=== PATIENT | female | born 1990 | race American Indian/Alaskan Native ===

== ENCOUNTER 2019-11-04 16:53 | Emergency (ER) | payer SELFPAY ==
--- NOTE | 2019-11-04 17:54 | Event Note ---
ED Screening Note Date of service: 11/04/19 Time: 17:50 ED Screening Note: This is a 29 y.o. F. that presents to the ER with palpitations and vaginal bleeding. Patient reports a history of irregular heart rhythm. States when palpitations start she have chest pain with symptoms. States chest pain is resolved. Patient reports vaginal bleeding since 09/03/2019. She received depovera and bleeding every since. This initial assessment/diagnostic orders/clinical plan/treatment(s) is/are subj ect to change based on patients health status, clinical progression and re- assessment by fellow clinical providers in the ED. Further treatment and workup at subsequent clinical providers discretion. Patient/guardian urged not to elope from the ED as their condition may be serious if not clinically assessed and managed. Initial orders include: Labs EKG
[2019-11-04 18:27] LABS: Basophils % (Auto) 0.4 % (0.0-1.8); Eosinophils # (Auto) 0.1 K/mm3 (0.0-0.4); Eosinophils % (Auto) 1.4 % (0.0-4.3); Hematocrit 22.5 % (30.3-42.9); Hemoglobin 7.2 gm/dl (10.1-14.3); Lymphocytes # (Auto) 2.9 K/mm3 (1.2-5.4); Lymphocytes % (Auto) 27.4 % (13.4-35.0); Mean Corpuscular HGB Conc 32 % (30-34); Monocytes # (Auto) 0.8 K/mm3 (0.0-0.8); Monocytes % (Auto) 7.8 % (0.0-7.3); Platelet Count 380 K/mm3 (140-440); Red Blood Count 3.25 M/mm3 (3.65-5.03); Red Cell Distribution Width 19.1 % (13.2-15.2)
[2019-11-04 18:33] LABS: Mean Corpuscular Volume 69 fl (79-97)
--- NOTE | 2019-11-04 20:05 | Emergency Department Report ---
ED General Adult HPI - General Chief complaint: Vaginal Bleeding Stated complaint: chest painbleeding, irr heartbeat Time Seen by Provider: 11/04/19 17:50 Source: patient Mode of arrival: Ambulatory Limitations: No Limitations - History of Present Illness Initial comments: Abdomen obese Samoan female to emergency Department complaining abnormal menses cycle since August which she has experienced in the past and worried because she usually becomes anemic during this time. She reports having issues of what sounds like palpitations and occasional lightheadedness with position change. She reports no fever, chills, sweats no vaginal discharge no abdominal pain no flank pain no easy bruising no hemoptysis no hematemesis or hematochezia. -: Gradual Consistency: constant Improves with: none Worsens with: none Associated Symptoms: denies other symptoms, chest pain (was given occasional funny irritation to the chest with palpitations which last for matter of seconds. She reports not having any of these episodes in the last couple days however). denies: cough, diaphoresis, loss of appetite, malaise, nausea/vomiting, syncope, weakness Treatments Prior to Arrival: none - Related Data Previous Rx's Medication Instructions Recorded Last Taken Type medroxyPROGESTERone ACETATE 10 mg PO QDAY #28 tablet 08/23/16 Unknown Rx [Provera] Iron Fum,Ps/Folic/Bcomp,C No.9 1 each PO DAILY #30 capsule 11/04/19 Unknown Rx [Integra Plus Capsule] Allergies Allergy/AdvReac Type Severity Reaction Status Date / Time No Known Allergies Allergy Verified 10/02/15 12:55 ED Review of Systems ROS: Stated complaint: chest painbleeding, irr heartbeat Other details as noted in HPI Comment: All other systems reviewed and negative ED Past Medical Hx - Past Medical History Hx Congestive Heart Failure: No Hx Diabetes: No Hx Headaches / Migraines: No Hx Seizures: No Hx Asthma: Yes Hx COPD: No Hx Dementia: No Additional medical history: anemia - Surgical History Additional Surgical History: blood transfusion [id number] - Social History Smoking Status: Never Smoker Substance Use Type: None - Medications Home Medications: Home Medications Medication Instructions Recorded Confirmed Last Taken Type medroxyPROGESTERone ACETATE 10 mg PO QDAY #28 tablet 08/23/16 Unknown Rx [Provera] Iron Fum,Ps/Folic/Bcomp,C No.9 1 each PO DAILY #30 capsule 11/04/19 Unknown Rx [Integra Plus Capsule] ED Physical Exam - General Limitations: No Limitations General appearance: alert, in no apparent distress - Head Head exam: Present: atraumatic, normocephalic, normal inspection - Eye Eye exam: Present: normal appearance, PERRL, EOMI Pupils: Present: normal accommodation - ENT ENT exam: Present: normal exam, normal orophraynx, mucous membranes moist - Neck Neck exam: Present: normal inspection - Respiratory Respiratory exam: Present: normal lung sounds bilaterally. Absent: respiratory distress - Cardiovascular Cardiovascular Exam: Present: regular rate, normal rhythm. Absent: systolic murmur, diastolic murmur, rubs, gallop - GI/Abdominal GI/Abdominal exam: Present: soft, normal bowel sounds. Absent: distended, tenderness, rigid, hyperactive bowel sounds, hypoactive bowel sounds, organomegaly - Extremities Exam Extremities exam: Present: normal inspection - Back Exam Back exam: Present: normal inspection - Neurological Exam Neurological exam: Present: alert, oriented X3 - Psychiatric Psychiatric exam: Present: normal affect, normal mood - Skin Skin exam: Present: warm, dry, intact, normal color. Absent: rash ED Course Vital Signs 11/04/19 17:13 Temperature 98.9 F Pulse Rate 103 H Respiratory 16 Rate Blood Pressure 149/92 O2 Sat by Pulse 96 Oximetry ED Medical Decision Making - Lab Data Result diagrams: 11/04/19 18:18 - EKG Data When compared to previous EKG there are: no significant change Interpretation: no acute changes - Medical Decision Making 29-year-old morbidly obese -Samoan female with a known history of iron deficiency anemia presents much department menses in the sensation of associated anemia. Hemoglobin was found to be 7.2 patient's awake alert oriented 3 no distress heart rate 100 ambulatory with no change in her vital signs or respirations she said 96-99% on room air. 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 Yesterday she ran out of her arm. An request a refill. She is comfortable with the plan of care. Critical care attestation.: If time is entered above; I have spent that time in minutes in the direct care of this critically ill patient, excluding procedure time. ED Disposition Clinical Impression: Anemia, Abnormal menses Disposition: TO HOME OR SELFCARE Is pt being admited?: No Does the pt Need Aspirin: No Condition: Stable Instructions: Iron Rich Diet (ED), Iron Deficiency Anemia (ED), Anemia (ED) Prescriptions: Iron Fum,Ps/Folic/Bcomp,C No.9 [Integra Plus Capsule] 1 each PO DAILY #30 capsule Referrals: [facility] [Provider Group] - 3-5 Days JAZMIN CERON MD [Staff Physician] - 3-5 Days
[2019-11-04 20:19] VITALS: BP 146/94
== END 2019-11-04 21:44 | disposition home or self-care (01) ==
LOC: ED 16:53
DX: D64.9 Anemia, unspecified (principal); N94.89 Other specified conditions associated with female genital organs and menstrual cycle; J45.909 Unspecified asthma, uncomplicated
CPT/HCPCS: 36415; 84703; 85025; 93005; 93010; 99283

== ENCOUNTER 2020-01-08 02:54 | Observation (INO) | payer MEDICAID ==
[2020-01-08] MEDS ORDERED: SODIUM CHLORIDE 0.9% 1000 ML 1,000 ML IV ONE (03:31)
[2020-01-08 04:38] LABS: Basophils % (Auto) 0.4 % (0.0-1.8); Eosinophils # (Auto) 0.1 K/mm3 (0.0-0.4); Eosinophils % (Auto) 1.2 % (0.0-4.3); Lymphocytes # (Auto) 2.9 K/mm3 (1.2-5.4); Lymphocytes % (Auto) 23.1 % (13.4-35.0); Mean Corpuscular HGB Conc 27 % (30-34); Monocytes # (Auto) 0.7 K/mm3 (0.0-0.8); Monocytes % (Auto) 5.8 % (0.0-7.3); Platelet Count 494 K/mm3 (140-440); Red Blood Count 3.34 M/mm3 (3.65-5.03)
[2020-01-08 04:44] LABS: Hematocrit 18.9 % (30.3-42.9); Hemoglobin 5.1 gm/dl (10.1-14.3); Mean Corpuscular Volume 57 fl (79-97); Red Cell Distribution Width 23.1 % (13.2-15.2)
[2020-01-08] MEDS ORDERED: SODIUM CHLORIDE 0.9% 500 ML 500 ML IV ONE (04:54)
--- NOTE | 2020-01-08 04:56 | Emergency Department Report ---
ED Dizziness HPI - General Chief Complaint: Dizziness Stated Complaint: HEADACHE/DIZZINESS/FAST HEART BEAT Time Seen by Provider: 01/08/20 04:53 Source: patient Mode of arrival: Ambulatory Limitations: No Limitations - History of Present Illness Initial Comments: Patient is a 29-year-old female that presents emergency room with complaints of dizziness and fast heartbeat. Patient also complaining of a headache. Patient states her headache is better with rest and worse with exertion. Patient denies fever or chills. Patient denies shortness of breath. Patient has a long history of anemia. MD Complaint: dizziness -: Sudden Timing: sudden onset Description: lightheadedness History of Same: Yes History of Trauma: No Severity: severe Improves With: rest Worsens With: movement, exertion Associated Symptoms: denies: ataxia, chest pain, confusion, cough, diaphoresis, fever/chills, loss of appetite, malaise, rash, seizure, shortness of breath, syncope, weakness - Related Data Previous Rx's Medication Instructions Recorded Last Taken Type medroxyPROGESTERone ACETATE 10 mg PO QDAY #28 tablet 08/23/16 Unknown Rx [Provera] Iron Fum,Ps/Folic/Bcomp,C No.9 1 each PO DAILY #30 capsule 11/04/19 Unknown Rx [Integra Plus Capsule] Allergies Allergy/AdvReac Type Severity Reaction Status Date / Time No Known Allergies Allergy Verified 10/02/15 12:55 ED Review of Systems ROS: Stated complaint: HEADACHE/DIZZINESS/FAST HEART BEAT Other details as noted in HPI Constitutional: denies: chills, fever Eyes: denies: eye pain, eye discharge, vision change ENT: denies: ear pain, throat pain Respiratory: denies: cough, shortness of breath, wheezing Cardiovascular: palpitations. denies: chest pain Endocrine: no symptoms reported Gastrointestinal: denies: abdominal pain, nausea, diarrhea Genitourinary: denies: urgency, dysuria, discharge Musculoskeletal: denies: back pain, joint swelling, arthralgia Skin: denies: rash, lesions Neurological: headache. denies: weakness, paresthesias Psychiatric: denies: anxiety, depression Hematological/Lymphatic: denies: easy bleeding, easy bruising ED Past Medical Hx - Past Medical History Previous Medical History?: Yes Hx Congestive Heart Failure: No Hx Diabetes: No Hx Headaches / Migraines: No Hx Seizures: No Hx Asthma: Yes Hx COPD: No Hx Dementia: No Additional medical history: anemia - Surgical History Past Surgical History?: Yes Additional Surgical History: blood transfusion [id number] - Family History Family history: no significant - Social History Smoking Status: Never Smoker Substance Use Type: None - Medications Home Medications: Home Medications Medication Instructions Recorded Confirmed Last Taken Type medroxyPROGESTERone ACETATE 10 mg PO QDAY #28 tablet 08/23/16 Unknown Rx [Provera] Iron Fum,Ps/Folic/Bcomp,C No.9 1 each PO DAILY #30 capsule 11/04/19 Unknown Rx [Integra Plus Capsule] ED Physical Exam - General Limitations: No Limitations General appearance: alert, in no apparent distress - Head Head exam: Present: atraumatic, normocephalic - Eye Eye exam: Present: normal appearance - ENT ENT exam: Present: mucous membranes moist - Neck Neck exam: Present: normal inspection - Respiratory Respiratory exam: Present: normal lung sounds bilaterally. Absent: respiratory distress, wheezes, rales - Cardiovascular Cardiovascular Exam: Present: regular rate, normal rhythm. Absent: systolic murmur, diastolic murmur, rubs, gallop - GI/Abdominal GI/Abdominal exam: Present: soft, normal bowel sounds. Absent: distended, tenderness, guarding - Extremities Exam Extremities exam: Present: normal inspection - Back Exam Back exam: Present: normal inspection - Neurological Exam Neurological exam: Present: alert, oriented X3 - Psychiatric Psychiatric exam: Present: normal affect, normal mood - Skin Skin exam: Present: warm, dry, intact, normal color. Absent: rash ED Course Vital Signs 01/08/20 01/08/20 03:10 05:00 Temperature 99.4 F Pulse Rate 121 H 103 H Respiratory 18 21 Rate Blood Pressure 158/86 153/78 O2 Sat by Pulse 100 100 Oximetry - Reevaluation(s) Reevaluation #1: Initial evaluation done. Patient's tachycardic. Patient found to be anemic. Patient will be typed and screened for 2 units. 01/08/20 04:56 Reevaluation #2: I discussed all results with patient. I discussed plan of care with patient. Patient agrees with plan of care and admission. Patient to be admitted to the hospitalist service. 01/08/20 05:01 - Consultations Consultation #1: Hospitalist consulted for admission. Hospitalist to admit patient. Bridge orders placed. 01/08/20 05:01 ED Medical Decision Making - Lab Data Result diagrams: 01/08/20 03:35 01/08/20 03:35 - EKG Data -: EKG Interpreted by Me EKG shows normal: sinus rhythm, axis, intervals, QRS complexes, ST-T waves Rate: tachycardia - Medical Decision Making Patient is a 29-year-old female that presents emergency room with complaints of headache, dizziness and palpitations. Patient has a long history of anemia. Patient CBCs shows a severe anemia with an H&H at 5.1/18.9. Patient will be adm itted to the hospitalist service and patient will be typed and screened and received 2 units due to her tachycardia. - Differential Diagnosis Anemia, tachycardia, dizziness, palpitations Critical Care Time: Yes Critical care time in (mins) excluding proc time.: 35 Critical care attestation.: If time is entered above; I have spent that time in minutes in the direct care of this critically ill patient, excluding procedure time. Critical Care Time: 35 minutes ED Disposition Clinical Impression: Severe anemia, Palpitations, Dizziness, Tachycardia Anemia Qualifiers: Anemia type: unspecified type Qualified Code(s): D64.9 - Anemia, unspecified Disposition: DC-09 OP ADMIT IP TO THIS HOSP Is pt being admited?: Yes Does the pt Need Aspirin: No Condition: Critical Time of Disposition: 05:02
[2020-01-08 05:03] LABS: Alanine Aminotransferase 8 units/L (7-56); BUN/Creatinine Ratio 9; Blood Urea Nitrogen 6 mg/dL (7-17); Calcium 8.8 mg/dL (8.4-10.2); Hemolysis Index 1
--- NOTE | 2020-01-08 05:47 | History and Physical Report ---
History of Present Illness History of present illness: 29-year-old woman with a history of anemia, dysfunctional uterine bleed, transfusion in the past comes emergency room with complaints of shortness of breath, dizziness and palpitations. Patient states she has been having her menstrual cycle for the last 4 months, menstrual cycle got worse when she started Depo-Provera. Hemoglobin was found to be low, she will be admitted for anemia Review Of Systems: Constitutional: no weight loss, fever, chills Ears, eyes, nose, mouth and throat: no nasal congestion, no nasal discharge, no sinus pressure, blurry vision, diplopia Neck: No neck pain or rigidity. Cardiovascular: No palpitations, chest pain Respiratory: No shortness of breath, cough Gastrointestinal: No hematochezia Genitourinary : no dysuria, frequency Musculoskeletal: no muscle ache , joint pain Integumentary: no rash, no pruritis Neurological: no parathesias, focal weakness Endocrine: no cold or heat intolerance, no polyuria or polydipsia Hematologic/Lymphatic: no easy bruising, no easy bleeding, no gland swelling Allergic/Immunologic: no urticaria, no angioedema. PAST MEDICAL HISTORY: Anemia PAST SURGICAL HISTORY: SOCIAL HISTORY: Denies alcohol, tobacco, drugs FAMILY HISTORY: Hypertension Medications and Allergies Allergies Allergy/AdvReac Type Severity Reaction Status Date / Time No Known Allergies Allergy Verified 10/02/15 12:55 Exam - Physical Exam Narrative exam: Gen. appearance: Patient lying in bed, no apparent distress HEENT: Normocephalic, atraumatic, pupils equally round and reactive to light, extraocular movement intact, and no sclericterus,. No JVD or thyromegaly or nodule,neck supple, no carotid bruit ,mucous membranes moist, no exudate or erythema Heart: S1, S2, regular rate and rhythm Lungs: Clear bilaterally, breathing comfortable Abdomen: Positive bowel sounds, nontender, nondistended, no organomegaly Extremity: no edema, cyanosis, clubbing Skin: No rash, nodules, warm, dry Neuro: Cranial nerves II to XII intact, speech is fluent, moves extremities, sensory intact - Constitutional Vitals: Temp Pulse Resp BP Pulse Ox 99.4 F 103 H 21 153/78 100 01/08/20 03:10 01/08/20 05:00 01/08/20 05:00 01/08/20 05:00 01/08/20 05:00 Results - Labs CBC & Chem 7: 01/08/20 03:35 01/08/20 03:35 Labs: Abnormal lab results 01/08/20 01/08/20 Range/Units 03:35 03:35 WBC 12.6 H (4.5-11.0) K/mm3 RBC 3.34 L (3.65-5.03) M/mm3 Hgb 5.1 L* (10.1-14.3) gm/dl Hct 18.9 L* (30.3-42.9) % MCV 57 L (79-97) fl MCH 15 L (28-32) pg MCHC 27 L (30-34) % RDW 23.1 H (13.2-15.2) % Plt Count 494 H (140-440) K/mm3 Seg Neutrophils # 8.7 H (1.8-7.7) K/mm3 BUN 6 L (7-17) mg/dL Glucose 107 H (65-100) mg/dL Assessment and Plan Assessment 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
[2020-01-08] MEDS ORDERED: ONDANSETRON 4 MG/2 ML INJ IV PRN (06:31)
[2020-01-08] MEDS ORDERED: diphenhydrAMINE 50 MG/ML VIAL IV PRN (06:36)
[2020-01-08] MEDS: ACETAMINOPHEN 325 MG TAB PO PRN ×2 (09:48→21:02)
--- NOTE | 2020-01-08 10:01 | Progress Note ---
Assessment and Plan Assessment and plan: --Severe anemia; Hemoglobin 5.1, hematocrit 18.9 Type and cross, transfuse 2 units of PRBC stat Closely monitor H&H Hospitalist Physical - Constitutional Vitals: Temp Pulse Resp BP Pulse Ox 98.3 F 97 H 18 128/70 99 01/08/20 07:27 01/08/20 07:27 01/08/20 07:27 01/08/20 07:27 01/08/20 07:27 Results - Labs CBC & Chem 7: 01/08/20 03:35 01/08/20 03:35 Labs: Laboratory Last Values WBC 12.6 K/mm3 (4.5-11.0) H 01/08/20 03:35 RBC 3.34 M/mm3 (3.65-5.03) L 01/08/20 03:35 Hgb 5.1 gm/dl (10.1-14.3) L* 01/08/20 03:35 Hct 18.9 % (30.3-42.9) L* 01/08/20 03:35 MCV 57 fl (79-97) L 01/08/20 03:35 MCH 15 pg (28-32) L 01/08/20 03:35 MCHC 27 % (30-34) L 01/08/20 03:35 RDW 23.1 % (13.2-15.2) H 01/08/20 03:35 Plt Count 494 K/mm3 (140-440) H 01/08/20 03:35 Lymph % (Auto) 23.1 % (13.4-35.0) 01/08/20 03:35 Loup % (Auto) 5.8 % (0.0-7.3) 01/08/20 03:35 Eos % (Auto) 1.2 % (0.0-4.3) 01/08/20 03:35 Baso % (Auto) 0.4 % (0.0-1.8) 01/08/20 03:35 Lymph # 2.9 K/mm3 (1.2-5.4) 01/08/20 03:35 Loup # 0.7 K/mm3 (0.0-0.8) 01/08/20 03:35 Eos # 0.1 K/mm3 (0.0-0.4) 01/08/20 03:35 Baso # 0.0 K/mm3 (0.0-0.1) 01/08/20 03:35 Seg Neutrophils % 69.5 % (40.0-70.0) 01/08/20 03:35 Seg Neutrophils # 8.7 K/mm3 (1.8-7.7) H 01/08/20 03:35 Sodium 140 mmol/L (137-145) 01/08/20 03:35 Potassium 4.0 mmol/L (3.6-5.0) 01/08/20 03:35 Chloride 102.5 mmol/L (98-107) 01/08/20 03:35 Carbon Dioxide 25 mmol/L (22-30) 01/08/20 03:35 Anion Gap 17 mmol/L 01/08/20 03:35 BUN 6 mg/dL (7-17) L 01/08/20 03:35 Creatinine 0.7 mg/dL (0.7-1.2) 01/08/20 03:35 Estimated GFR > 60 ml/min 01/08/20 03:35 BUN/Creatinine Ratio 9 % 01/08/20 03:35 Glucose 107 mg/dL (65-100) H 01/08/20 03:35 Calcium 8.8 mg/dL (8.4-10.2) 01/08/20 03:35 Iron 14 ug/dL (37-170) L 01/08/20 03:35 Ferritin 3.4 ng/mL (13.0-400.0) L 01/08/20 03:35 Total Bilirubin 0.70 mg/dL (0.1-1.2) 01/08/20 03:35 AST 13 units/L (5-40) 01/08/20 03:35 ALT 8 units/L (7-56) 01/08/20 03:35 Alkaline Phosphatase 51 units/L (35-129) 01/08/20 03:35 Total Protein 8.0 g/dL (6.3-8.2) 01/08/20 03:35 Albumin 4.0 g/dL (3.9-5) 01/08/20 03:35 Albumin/Globulin Ratio 1.0 % 01/08/20 03:35 HCG, Qual Negative (Negative) 01/08/20 05:05 Blood Type O POSITIVE 01/08/20 05:10 Antibody Screen Negative 01/08/20 05:10 Crossmatch See Detail 01/08/20 05:10 Baez/IV: IV Catheter Type [Right INT / Saline Lock Antecubital] Active Medications - Current Medications Current Medications: Generic Name Dose Route Start Last Admin Trade Name Freq PRN Reason Stop Dose Admin Acetaminophen 650 mg 01/08/20 06:31 01/08/20 09:48 Tylenol PO 650 mg Q4H PRN Administration Pain MILD(1-3)/Fever >100.5/ALBARRAN Diphenhydramine HCl 25 mg 01/08/20 06:36 01/08/20 09:48 Benadryl IV 25 mg Q6H PRN Administration Itching Ondansetron HCl 4 mg 01/08/20 06:31 Zofran IV Q8H PRN Nausea And Vomiting Sodium Chloride 10 ml 01/08/20 10:00 01/08/20 09:48 Sodium Chloride Flush Syringe 10 Ml IV 10 ml BID NEEL Administration Sodium Chloride 10 ml 01/08/20 06:31 Sodium Chloride Flush Syringe 10 Ml IV PRN PRN LINE FLUSH
--- NOTE | 2020-01-08 13:13 | Event Note ---
Date: 01/08/20 Chart reviewed. Per RN scant bleeding. Recommend pad count for now. Full consult to follow. Will schedule appointment for evaluation in office if Hospitalist feels patient is stable for discharge before consult completed.
--- NOTE | 2020-01-08 18:49 | Event Note ---
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
[2020-01-08 20:42] VITALS: BP 146/81
[2020-01-08 21:18] LABS: Hematocrit 25.7 % (30.3-42.9)
[2020-01-08 21:19] LABS: Hemoglobin 7.2 gm/dl (10.1-14.3)
[2020-01-08] MEDS ORDERED: oxyCODONE /ACETAMINOPHEN 5-325MG TAB PO PRN (21:26)
--- NOTE | 2020-01-09 05:23 | Discharge Summary ---
Providers - Providers Date of Admission: 01/08/20 05:04 Date of discharge: 01/08/20 Attending physician: FRANK BHATT 01/08/20 06:31 Consult to Physician [CONS] Routine Comment: Consulting Provider: FERCHO WILLIAMSON Physician Instructions: Reason For Exam: anemia, bleeding x 4 months Primary care physician: CUT OFF SAW OPERATOR Hospitalization Condition: Stable Disposition: DC- TO HOME OR SELFCARE Exam - Constitutional Vitals: Temp Pulse Resp BP Pulse Ox 99.8 F H 91 H 20 146/81 99 01/08/20 20:22 01/08/20 20:22 01/08/20 21:02 01/08/20 20:22 01/08/20 20:22 Plan Follow up with: ROBIN GUNDERSON NP [Advanced Practice Nurse] - 01/09/20 2:00 pm ([facility]) PRIMARY CARE, [Primary Care Provider] - 3-5 Days Prescriptions: Ferrous Sulfate [Feosol 325 MG tab] 325 mg PO BID #60 tablet
== END 2020-01-08 23:05 | disposition home or self-care (01) ==
LOC: ED 02:54 → INTOOBSV 05:04 → 4A 05:04
PROVIDERS: ADMIT Internal Medicine; ATTEND Internal Medicine
DX: D64.9 Anemia, unspecified (principal); D50.0 Iron deficiency anemia secondary to blood loss (chronic); N93.8 Other specified abnormal uterine and vaginal bleeding; R42 Dizziness and giddiness; N92.0 Excessive and frequent menstruation with regular cycle; R00.0 Tachycardia, unspecified
CPT/HCPCS: 36415; 36430; 80053; 82728; 83540; 84703; 85014; 85018; 85025; 86850; 86900; 86901; 86920; 93005; 93010; 96361; 96374; 99291; G0378; J7030; P9016

== ENCOUNTER 2022-06-10 09:12 | Emergency (ER) | payer MEDICAID ==
[2022-06-10 09:24] VITALS: BP 165/101
[2022-06-10] MEDS ORDERED: ALBUTEROL 2.5 MG/3 ML NEBU IH ONE (11:50)
[2022-06-10] MEDS ORDERED: predniSONE 20 MG TAB PO ONE (11:50)
--- NOTE | 2022-06-10 11:51 | Emergency Department Report ---
Minor Respiratory - HPI Chief Complaint: Adult Asthma Stated Complaint: WHEEZING RAPID HEARTBEAT,HEADACHE,CHESTPAIN,COUGH Duration: 5 Days Pain Location: Chest Severity: mild Minor Respiratory: Yes Able to Tolerate Fluids, No Rhinorrhea, No Sore Throat, No Ear Pain, No Cough, No Sick Contacts, No Hemoptysis, No Chest Pain, No Shortness of Breath, No Fever Other History: 32 yo comes to ER with 1 w hx of inc wheezing. no fever. no chills. no purulent sputum. ED Review of Systems ROS: Stated complaint: WHEEZING RAPID HEARTBEAT,HEADACHE,CHESTPAIN,COUGH Other details as noted in HPI Comment: All other systems reviewed and negative ED Past Medical Hx - Past Medical History Previous Medical History?: Yes Hx Hypertension: Yes Hx Congestive Heart Failure: No Hx Diabetes: No Hx Headaches / Migraines: No Hx Seizures: No Hx Asthma: Yes Hx COPD: No Hx Dementia: No Additional medical history: anemia - Surgical History Past Surgical History?: Yes Additional Surgical History: blood transfusion [id number] - Family History Family history: no significant - Social History Smoking Status: Never Smoker Substance Use Type: None - Medications Home Medications: Home Medications Medication Instructions Recorded Confirmed Last Taken Type Ferrous Sulfate [Feosol 325 MG tab] 325 mg PO BID #60 tablet 01/08/20 Unknown Rx ALBUTEROL NEB's [Proventil 0.083% 2.5 mg IH TID PRN #1 box 06/10/22 Unknown Rx NEBS] Albuterol Mdi (or & Nicu Only) 2 puff IH QID PRN #1 inhalation 06/10/22 Unknown Rx [ProAir HFA Inhaler] predniSONE [Deltasone] 20 mg PO DAILY #5 tablet 06/10/22 Unknown Rx Minor Respiratory Exam - Exam General: Vital signs noted. No distress. Alert and acting appropriately. HEENT: Yes Moist Mucous Membranes, No Pharyngeal Erythema, No Pharyngeal Exudates, No Rhinorrhea, No Conjuctival Injection, No Frontal Tenderness, No Maxillary Tenderness Ear: Neither TM Bulge, Neither TM Erythema, Neither EAC Pain, Neither EAC Discharge Neck: Yes Supple, No Adenopathy Lungs: Yes Good Air Exchange, Yes Wheezes, No Ronchi, No Stridor, No Cough, No Labored Respirations, No Retractions, No Use of Accessory Muscles, No Other Abnormal Lung Sounds Heart: Yes Regular, No Murmur Abdomen: Yes Normal Bowel Sounds, No Tenderness, No Peritoneal Signs Skin: No Rash, No Edema Neurologic: Alert and oriented, no deficits. Musculoskeletal: Unremarkable. ED Course Vital Signs 06/10/22 09:20 Temperature 98.4 F Pulse Rate 99 H Respiratory 16 Rate Blood Pressure 165/101 [Right] O2 Sat by Pulse 98 Oximetry ED Medical Decision Making - Medical Decision Making Vital Signs 06/10/22 06/10/22 09:20 12:36 Temperature 98.4 F Pulse Rate 99 H Pulse Rate [ 90 Anterior Bilateral] Respiratory 16 Rate Respiratory 16 Rate [Anterior Bilateral] Blood Pressure 165/101 [Right] O2 Sat by Pulse 98 Oximetry duoneb and prednisone in ER improved wheezing ambulatory wo hypoxia no indication for antibiotics a/c htn- per EMR but pt denies no cp no sob no headache neuro intact dc bp 150/90 per provider dc home with dc plan of care including diet, meds, activity and follow up - Differential Diagnosis asthma ae Critical care attestation.: If time is entered above; I have spent that time in minutes in the direct care of this critically ill patient, excluding procedure time. ED Disposition Clinical Impression: History of hypertension Asthma Qualifiers: Asthma severity: mild Asthma persistence: intermittent Asthma complication type: uncomplicated Qualified Code(s): J45.20 - Mild intermittent asthma, uncomplicated Disposition: 01 HOME / SELF CARE / HOMELESS Is pt being admited?: No Does the pt Need Aspirin: No Condition: Stable Instructions: Asthma, Adult, Asthma (ED) Additional Instructions: MEDS ORDERED TODAY FOLLOW UP WITH PCP AND OB REFERRAL BELOW Prescriptions: predniSONE [Deltasone] 20 mg PO DAILY #5 tablet Albuterol Mdi (or & Nicu Only) [ProAir HFA Inhaler] 2 puff IH QID PRN #1 inh alation PRN Reason: Shortness Of Breath ALBUTEROL NEB's [Proventil 0.083% NEBS] 2.5 mg IH TID PRN #1 box PRN Reason: Wheezing Referrals: JAZMIN CERON MD [Primary Care Provider] - 3-5 Days KYRA ASENCIO MD [Staff Physician] - 3-5 Days Forms: Work/School Release Form(ED) Time of Disposition: 12:40
== END 2022-06-10 13:20 | disposition home or self-care (01) ==
LOC: ED 09:12
DX: J45.909 Unspecified asthma, uncomplicated (principal); I10 Essential (primary) hypertension; Z98.890 Other specified postprocedural states; Z79.899 Other long term (current) drug therapy
CPT/HCPCS: 94640; 94644; 99282